=== PATIENT | female | born 1990 | race Caucasian/White ===

== ENCOUNTER 2022-11-17 14:59 | Emergency (ER) | payer OTHER ==
[2022-11-17 15:12] VITALS: BP 108/78; PULSE 78; RESP 20; TEMP 98.3; BMI 22.1
[2022-11-17] MEDS ORDERED: SODIUM CHLORIDE 0.9% 500 ML INFUS.BAG IV ONE (15:40)
[2022-11-17] MEDS ORDERED: ACETAMINOPHEN 1000 MG/100 ML BAG IVPB ONE (15:40)
[2022-11-17] MEDS ORDERED: ACETAMINOPHEN INJECTION 100 ML IVPB ONE (16:12)
[2022-11-17 16:28] LABS: HEMATOCRIT 38.9 % (32.4-45.2); HEMOGLOBIN 13.7 G/dL (10.7-15.3); MCH 31.5 pg (25.7-33.7); MCHC 35.3 g/dl (32.0-36.0); MEAN CELL VOLUME 89.3 fl (80-96); MEAN PLT VOLUME 9.7 fl (7.5-11.1); PLATELET COUNT 250.3 10^3/uL (134-434); RBC 4.36 10^6/uL (3.60-5.2); RDW 12.8 % (11.6-15.6); WHITE BLOOD COUNT 3.1 10^3/uL (4.0-10.8)
[2022-11-17 16:45] LABS: ALBUMIN 3.4 g/dl (3.4-5.0); ALK PHOS 42 U/L (45-117); ANION GAP 6 MMOL/L (8-16); BILIRUBIN,TOTAL 0.2 mg/dl (0.2-1); CALCIUM 8.8 mg/dl (8.5-10); CHLORIDE 104 mmol/L (98-107); CO2 28 mmol/L (21-32); CREATININE 0.5 mg/dl (0.55-1.3); GLUCOSE,RANDOM 79 mg/dl (74-106); POTASSIUM 4.1 mmol/L (3.5-5.1); SGOT/AST 18 U/L (15-37); SGPT/ALT 16 U/L (13-61); SODIUM 138 mmol/L (136-145); TOT PROT 6.3 g/dl (6.4-8.2)
[2022-11-17 16:55] LABS: PLATELET ESTIMATE ADEQUATE
[2022-11-17] MEDS ORDERED: ALBUTEROL SO4 2.5/IPRATROPIUM 0.5 INH SOL 3 ML VIAL.NEB. NEB ONE ×5 (17:52→18:13)
[2022-11-17] MEDS ORDERED: DEXAMETHASONE SOD PHOSPHATE 10 MG/1 ML VIAL IVPUSH ONE (18:13)
[2022-11-17] MEDS ORDERED: DEXAMETHASONE SOD PHOSPHATE/PF 10 MG/ML SDV ONE (18:13)
[2022-11-17] MEDS ORDERED: ALBUTEROL SO4 HFA INHALER IH ONE ×2 (18:35→18:41)
[2022-11-17 18:38] LABS: N-TERMINAL BNP 54.2 pg/ml (5-125)
== END 2022-11-17 18:58 | disposition home or self-care (01) ==
LOC: FER 14:59
PROC: 3E033NZ Introduction of Analgesics, Hypnotics, Sedatives into Peripheral Vein, Percutaneous Approach (ICD-10-PCS; principal; 2022-11-17)
PROC: 3E033GC Introduction of Other Therapeutic Substance into Peripheral Vein, Percutaneous Approach (ICD-10-PCS; 2022-11-17)
PROC: 3E0F7GC Introduction of Other Therapeutic Substance into Respiratory Tract, Via Natural or Artificial Opening (ICD-10-PCS; 2022-11-17)
PROC: 3E0F7GC Introduction of Other Therapeutic Substance into Respiratory Tract, Via Natural or Artificial Opening (ICD-10-PCS; 2022-11-17)
PROC: 3E0F7GC Introduction of Other Therapeutic Substance into Respiratory Tract, Via Natural or Artificial Opening (ICD-10-PCS; 2022-11-17)
DX: J98.01 Acute bronchospasm (principal); B34.9 Viral infection, unspecified; R09.81 Nasal congestion; R11.10 Vomiting, unspecified; R06.00 Dyspnea, unspecified; R05.9 Cough, unspecified; R42 Dizziness and giddiness; Z20.822 Contact with and (suspected) exposure to COVID-19
CPT/HCPCS: 0241U-QW; 36415; 71046-TC-FY; 80053; 83880; 84484; 84703; 85027; 85379; 93005; 99285-25; J1100

== ENCOUNTER 2022-12-07 11:52 | Emergency (ER) | payer OTHER ==
[2022-12-07 12:09] VITALS: BP 103/71; PULSE 89; RESP 18; TEMP 98.3; BMI 21.2
== END 2022-12-07 12:31 | disposition home or self-care (01) ==
LOC: FER 11:52
DX: M25.551 Pain in right hip (principal); S70.01XA Contusion of right hip, initial encounter; V89.2XXA Person injured in unspecified motor-vehicle accident, traffic, initial encounter
CPT/HCPCS: 99282-25